=== PATIENT | male | born 1985 | race African-American/Black ===

== ENCOUNTER 2023-08-20 01:18 | Emergency (ER) | payer MEDICAID ==
[~2023-08-20] VITALS: Ht 170.2 cm; Wt 68.0 kg
[2023-08-20 01:24] VITALS: BP 135/96; PULSE 101; RESP 20; TEMP 98.3; O2SAT 98
[2023-08-20] MEDS ORDERED: SODIUM CHLORIDE 0.9% 1,000 ML IV ONE (01:30)
[2023-08-20] MEDS ORDERED: LORAZEPAM 1MG TABLET PO ONE (01:30)
== END 2023-08-20 04:13 | disposition left against medical advice (07) ==
LOC: ER 01:48
DX: R44.1 Visual hallucinations (principal); F15.10 Other stimulant abuse, uncomplicated; F14.10 Cocaine abuse, uncomplicated; F12.10 Cannabis abuse, uncomplicated
CPT/HCPCS: 99283; J7030